=== PATIENT | female | born 1995 | race Caucasian/White ===

== ENCOUNTER 2017-04-18 01:03 | Inpatient (IN) | payer MEDICAID ==
[2017-04-18 01:23] VITALS: BMI 27.4
[2017-04-18] MEDS: Lactated Ringer's 1,000 ML IV SCH (02:20)
--- NOTE | 2017-04-18 02:22 | OBADHP ---
Datetime: 04/18/2017 01:56 Admit Comment, IP Provider: 21 y/o female with IUP at 38.2wks gestation (KATE 04/30) presents with lo ss of fluid at 12:30am. Denies ctx, vb. +fm. Denies headache, blurry vision, epigastric/RUQ pain, LE swelling. PT states she is desiring . PNC: [facility], no pnc records, unkown, GBS status unknown. Last visit 04/08, missed last appt. OBHx: Prior Csection 2009, breech, full term, pt reports having high blood pressures denies having preeclampsia PMHX: denies PsurHx: denies NKDA Meds: PNV Denies smoking, alcohol, drug use Vitals: 151/89, HR 116, O2 sat 99 General: Comfortable, NAD, AOx3 Cardiac: RRR, no murmurs Pul: CTABL Abdomen: Gravid, NT Speculum: +pooling, clear, nitrazine + Bimanual: Cervix closed, 65%, -3 FHR: 160, reactive, no decels Bedside Abd U/S: Cephalic presentation Assessment: IUP at 38.2 wks with SROM, not in active labor, elevated BP Plan: Admit to L_D. Continuous monitoring and monitor maternal vital signs. Will retrieve PN C records from [facility] and operative records from [place]. CBC, CMP, Uric Acid, LDH Discussed case with OB Attending, Dr. Ortiz Stover, PGY1 OB Hopsitalist Addendum: Pt seen and examined by me. Agree w/ above. 21 yo w/ h/o previ ous c/s at 38+2 weeks w/ SROM clear fluid at 00:30, desires . Pt denies ctxns, VB, reports FM. Pt denies HAs, vision changes, N/V, abominal pain. BP 151/89. On exam, pt appears comfortable lying in bed. Spec: positive pool clear fluid, positive nitrazine. VE: closed/ 65/ -3 at 01:55am. DTRs 3+. Pt admitted to L_D. GBS unknown. Pt consented for . Will obtain records from [facility] in am . (ES) Vital Signs Provider: Reviewed Vital Signs Provider Details: elevated bp IP Chief Complaint: Suspected ruptured membranes EGA AdmitDate IP: 38.2 IP Adm Impression: Term, intrauterine IP Admit Plan: Admit to unit
[2017-04-18 02:35] LABS: BASO % 0.3 % (0.0-2.0); EOS # 0.1 K/uL (0.0-0.7); EOS % 0.6 % (0.0-4.0); HEMOGLOBIN 10.8 g/dL (12.0-16.0); LYMPH # 2.1 K/uL (1.0-4.3); LYMPH % 22.6 % (20.0-40.0); MEAN CELL VOLUME 89.5 fl (81.0-99.0); MEAN CORPUSCULAR HEMOGLOBIN 29.5 pg (27.0-31.0); MEAN PLATELET VOLUME 8.8 fl (7.2-11.7); MONO # 0.6 K/uL (0.0-0.8); MONO % 6.6 % (0.0-10.0); NEUT # 6.5 K/uL (1.8-7.0); NEUT % 69.9 % (50.0-75.0); RBC 3.65 Mil/uL (3.80-5.20); RED CELL DISTRIBUTION WIDTH 13.3 % (11.5-14.5); WHITE BLOOD COUNT 9.3 K/uL (4.8-10.8)
[2017-04-18 02:57] LABS: ALBUMIN 3.7 g/dL (3.5-5.0); ALT/SGPT 21 U/L (9-52); AST/SGOT 28 U/L (14-36); BLOOD UREA NITROGEN 11 mg/dl (7-17); GFR AFRICAN-AMERICAN > 60; GFR NON-AFRICAN AMERICAN > 60
[2017-04-18 03:20] LABS: URIC ACID 4.1 mg/Dl (2.2-7.5)
[2017-04-18] MEDS ORDERED: Nalbuphine 20 mg/ml Inj (1 ml) IVP ONE (04:31)
--- NOTE | 2017-04-18 04:38 | OBHP ---
Datetime: 04/18/2017 01:56 Amniotic Fluid Color, Provider: Clear EGA AdmitDate IP: 38.2 NICHD Accel Fetus A IP Provider: [id number] Datetime: 04/18/2017 01:29 IP Adm Impression: Term, intrauterine IP Admit Plan: Admit to unit Admit Comment, IP Provider: 21 y/o female with IUP at 38.2wks gestation (KATE 04/30) presents with lo ss of fluid at 12:30am. Denies ctx, vb. +fm. Denies headache, blurry vision, epigastric/RUQ pain, LE swelling. PT states she is desiring . PNC: [facility], no pnc records, unkown, GBS status unknown. Last visit 04/08, missed last appt. OBHx: Prior Csection 2009, breech, full term, pt reports having high blood pressures denies having preeclampsia PMHX: denies PsurHx: denies NKDA Meds: PNV Denies smoking, alcohol, drug use Vitals: 151/89, HR 116, O2 sat 99 General: Comfortable, NAD, AOx3 Cardiac: RRR, no murmurs Pul: CTABL Abdomen: Gravid, NT Speculum: +pooling, clear, nitrazine + Bimanual: Cervix closed, 65%, -3 FHR: 160, reactive, no decels Bedside Abd U/S: Cephalic presentation Assessment: IUP at 38.2 wks with SROM, not in active labor, elevated BP Plan: Admit to L_D. Continuous monitoring and monitor maternal vital signs. Will retrieve PN C records from [facility] [place] and operative records from [place]. CBC, CMP, Uric Acid, LDH Discussed case with OB Attending, Dr. Ortiz Stover, PGY1 Pelvic Type - PN: Adequate Extremities - PN: Normal Abdomen - PN: Normal Back - PN: Normal Breast - PN: Not Done Lungs - PN: Normal Heart - PN: Normal Thyroid - PN: Normal Neurologic - PN: Normal HEENT - PN: Normal General - PN: Normal FHR - Baseline A Provider: 150 Membranes, Provider: Ruptured Contraction Comments Provider: q2-5 Nitrazine Provider: Positive Vital Signs Provider: Reviewed Vital Signs Provider Details: elevated BP IP Chief Complaint: Suspected ruptured membranes NICHD Variability Prov Fetus A: Moderate 6-25bpm FHR Category Provider Fetus A: Category I NICHD Decel Fetus A IP Provider: None Dilatation, Provider: 0 Effacement, Provider: 65 Station, Provider: -3 Genitourinary Exam: Normal DTRs - PN: Abnormal
[2017-04-18] MEDS ORDERED: Bupivacaine HCl 0.25% PF (10 ml) Inj ONE (08:30)
[2017-04-18] MEDS ORDERED: ceFAZolin IV 2 gm in Dextrose 2 GM/50 ML BAG IVPB ONE (09:03)
[2017-04-18] MEDS ORDERED: EPINEPHrine 1 mg/ml (1:1000) Inj ONE (09:13)
[2017-04-18] MEDS ORDERED: Lidocaine 2% PF (10 ml) Amp ONE (09:14)
[2017-04-18] MEDS ORDERED: Oxytocin 30 UNITS in Sodium Chloride 0.9% 500 ML IV ONE (09:19)
--- NOTE | 2017-04-18 09:20 | OBPN ---
Datetime: 04/18/2017 09:05 IP Informed Consent Obtain: Section Delivery Contraction Comments Provider: q 1-4 mins FHR - Baseline A Provider: 150 IP Progress Note Comment: Patient evaluated, advised patient for repeat . Advised risks inc luding risk of bleeding, infection, damage to surrounding organs. Ancef to be given pre-operatively. Will proceed to when available Vital Signs Provider: Reviewed; Within Normal Limits NICHD Variability Prov Fetus A: Moderate 6-25bpm NICHD Decel Fetus A IP Provider: Early Datetime: 04/18/2017 01:56 Amniotic Fluid Color, Provider: Clear NICHD Accel Fetus A IP Provider: [id number] Datetime: 04/18/2017 01:29 Nitrazine Provider: Positive Membranes, Provider: Ruptured Vital Signs Provider Details: elevated BP FHR Category Provider Fetus A: Category I Dilatation, Provider: 0 Effacement, Provider: 65 Station, Provider: -3
[2017-04-18] MEDS ORDERED: Morphine 1 mg/ml preservative-free Inj(Duramorph) ONE (09:32)
[2017-04-18] MEDS ORDERED: DiphenhydrAMINE 50 mg/ml Inj IVP PRN (10:10)
--- NOTE | 2017-04-18 10:44 | OBDS ---
DELIVERY PERSONNEL Delivery Doctor: Nilsa Hunt MD/Dr Alcantar Scrub Nurse: Vianca Wall OBT [employer] Driver: Andre Hernandez [id number] Anesthesiologist: Billie Funez MD MATERNAL INFORMATION Medications in Delivery: Pitocin Placenta Cultured: No Maternal Complications: None Provider Comments: Surgeon: Dr. Hunt [employer] Flatbed Driver; Dr. Alcantar Pre-operative Dx: Term, previous x 1, ruptured Surgery: Repeat Post-op: Same Findings: Live male infant, 6lbs 15 oz, 9/9, clear fluid, adhesions between peritoneum and muscle, unable to visualize tubes and ovaries [id number] Total input: 1500mL UO: 400mL Anesthesia: Epidural by Dr. Funez Complications: None Condition: stable LABOR SUMMARY EDC: 04/30/2017 00:00 No. Babies in Womb: 1 MEMBRANES Membranes Rupture Method: Spontaneous Amniotic Fluid Color: Clear STAGES OF LABOR Stage 3 hrs: 0 Stage 3 min: 1 BABY A INFORMATION Delivery Date/Time: 04/18/2017 10:02 Method of Delivery: Born in Route : No : N/A Forceps: N/A Vacuum Extraction: N/A Shoulder Dystocia : No SHOULDER DYSTOCIA BABY A Infant Delivery Date/Time: 04/18/2017 10:02 PRESENTATION/POSITION BABY A Presentation: Cephalic Cephalic Presentation: Vertex Breech Presentation: N/A PLACENTA INFORMATION BABY A Placenta Delivery Time : 04/18/2017 10:03 Placenta Method of Delivery: Expressed Placenta Status: Delivered SCORES BABY A Heart Rate 1 min: >100 bpm Resp Effort 1 min: Good Cry Reflex Irritability 1 min: Cough or Sneeze or Pulls Away Muscle Tone 1 min: Active Motion Color 1 min: Body [place], Extremities Blue Resuscitation Effort 1 min: Tactile Stimulation SCORE 1 MIN: 9 Heart Rate 5 min: >100 bpm Resp Effort 5 min: Good Cry Reflex Irritability 5 min: Cough or Sneeze or Pulls Away Muscle Tone 5 min: Active Motion Color 5 min: Body [place], Extremities Blue Resuscitation Effort 5 min: N/A SCORE 5 MIN: 9 INFORMATION BABY A Gestational Age at Delivery: 38.2 Gestational Status: Term Outcome : Liveborn Condition : Stable Infant Sex: Male IDENTIFICATION/MEDS BABY A ID Band Number: [id number] ID Band Location: Left Leg; Left Arm Vitamin K Given : Not Given Erythromycin Given: Not Given WEIGHT/LENGTH BABY A Birthweight (gms): 3115 Weight (lb): 6 Weight (oz): 14 CORD INFORMATION BABY A No. Cord Vessels: 3 Nuchal Cord : N/A Nuchal Cord Other: n/a True Knot: n/a Infant Cord pH Baby Arterial: n /a Cord pH Baby Venous: n/a Cord Blood Taken: Yes Banking/Donate Info: n/a Suction: Mouth; Nose ASSESSMENT BABY A Complications: None Physical Findings at Delivery: Within Normal Limits Respirations: Appears Normal Supervisor Cartography/ALS Called : No Care By: Dr Kaplan/Jada
--- NOTE | 2017-04-18 12:28 | OP ---
PROCEDURE DATE: 04/18/2017 PREOPERATIVE DIAGNOSES: Term , previous section x1 and ruptured. POSTOPERATIVE DIAGNOSES: Term , previous section x1 and ruptured. SURGERY: Repeat . SURGEON: Dr. Hunt. CROCHETER: Dr. Alcantar. FINDINGS: Live male , 6 pounds 15 ounces, 9 and 9, vertex, clear fluid, adhesions between peritoneum and muscle, unable to visualize tubes and ovaries. ESTIMATED BLOOD LOSS: 800 mL. TOTAL FLUID INPUT: 1500 mL. URINE OUTPUT: 400 mL. TYPE OF ANESTHESIA: Epidural. ANESTHESIA ADMINISTERED BY: Dr. Funez. COMPLICATIONS: None. CONDITION: Stable. PATHOLOGY SPECIMEN: Cord blood. INDICATION: This is a 21-year-old G2, P1 at 38 weeks and 2 days, who presents to Labor and Delivery, ruptured and previous . The patient was counseled for repeat , explained risks and benefits of repeat surgery including risk of bleeding, infection, damage to surrounding organs such as bowel, bladder, ureter, and uterus. The patient verbalized understanding and signed informed consent. Ancef was given preoperatively, anesthesia placed bilaterally. DESCRIPTION OF PROCEDURE: The patient was taken to the OR and Ancef was given preoperatively, SCDs were placed bilaterally. The patient was prepped and draped in the lower supine position with a leftward tilt. A Pfannenstiel skin incision was made through the previous incision with scalpel and carried through to the underlying layer of fascia with the Bovie. The fascia was incised in the midline, and incision was extended laterally with the Bovie. Linda clamps was used to tent up the inferior aspect of this incision, which was dissected off the underlying rectus abdominis muscles with the Bovie. In a similar fashion, we tented up the superior aspect of this incision, which we dissected off of the underlying rectus abdominis muscles with the Bovie. The muscles were bluntly at the midline. We dissected down to the underlying layer of fascia layer of peritoneum carefully. Good visualization of all underlying organs superiorly and inferiorly. The bladder blade was inserted. Lower uterine segment was incised in a transverse fashion. Uterine cavity was entered. The uterine incision was extended manually. The infant was delivered in cephalic presentation atraumatically followed by shoulders and rest of the atraumatically. Cord was clamped and cut. The infant was handed off to the awaiting pediatric team. Placenta was excised manually. The uterus was unable to be exteriorized due to the dense adhesions between the peritoneum and the muscle. We removed all the debris from the uterus. Uterine incisions were repaired with an 0-Vicryl stitch in a locked fashion. Hysterotomy site appeared to be hemostatic. The peritoneum was closed with 2-0 Monocryl and the muscle was re-approximated with the same stitch. The fascia was closed with an 0 Vicryl stitch and the subcutaneous fat was re-approximated with plain gut suture. Sponge, needle and instruments were accounted for x4. Skin was closed with a 4-[address] Alcantar assisted in all aspects of delivery including retractions of the infant, suturing, cutting of suture. The patient was taken to the recovery room in stable condition. Jane Hunt MD
[2017-04-18] MEDS ORDERED: Oxycodone/Acetaminophen 5/325 mg Tab PO PRN ×2 (12:49)
[2017-04-19] MEDS ORDERED: Tetanus/Diphtheria Toxoids 0.5 ml Syringe IM ONE (06:17)
[2017-04-19 06:53] LABS: BASO % 0.2 % (0.0-2.0); EOS % 0.1 % (0.0-4.0); HEMOGLOBIN 8.2 g/dL (12.0-16.0); LYMPH # 1.9 K/uL (1.0-4.3); LYMPH % 18.5 % (20.0-40.0); MEAN CELL VOLUME 89.8 fl (81.0-99.0); MEAN CORPUSCULAR HEMOGLOBIN 30.1 pg (27.0-31.0); MEAN CORPUSCULAR HGB CONC 33.6 g/dL (33.0-37.0); MEAN PLATELET VOLUME 8.4 fl (7.2-11.7); MONO # 0.8 K/uL (0.0-0.8); MONO % 7.5 % (0.0-10.0); NEUT # 7.6 K/uL (1.8-7.0); NEUT % 73.7 % (50.0-75.0); NRBC % 0.1 % (0.0-0.0); RBC 2.73 Mil/uL (3.80-5.20); RED CELL DISTRIBUTION WIDTH 13.1 % (11.5-14.5); WHITE BLOOD COUNT 10.4 K/uL (4.8-10.8)
--- NOTE | 2017-04-19 10:27 | OBPPN ---
Datetime: 04/19/2017 06:17 PP Pain Prov: Within normal limits PP Nausea Prov: Denies PP Flatus Prov: Yes PP BM Prov: No PP Breasts Prov: Not Done PP Heart Prov: Normal PP Lungs Prov: Normal PP Abdomen/Uterus Prov: Normal PP Lochia Prov: Normal PP Vulva/Perineum Prov: Not Done PP CVA Tenderness Prov: Not Done PP Extremities Prov: Normal PP C/S Incision Prov: Not Applicable PP Progress Prov: Normal PP Impression Prov: Normal progression PP Plan Prov: Continue present management PP Progress Note Prov: POD 1 S: 21 y/o s/p repeat c section on 04/18/17 seen an evaluated post op day 1. No overnight even ts. Pt reports mild abdominal pain, but well controlled with pain meds. Ambulating without dizziness/ lightheadedness/palpatations. without difficulty. Lochia is similar to menses volume. No BM, +gas per rectum. Denies fever/chills, diarrhea, nausea/vomiting, chest pain, dyspnea, and dizz iness. O: VS: stable GEN: NAD Cardio: S1S2, no murmurs Lungs: clear breath sounds b/l, no wheezing Abdomen: BS+, appropriate tenderness to palpation. Dressing in tact, dry. Uterus is firm and at th e level of the umbilicus. EXT: No edema, calves nontender NEURO/PSYCH: AAOx3, no grossly focal deficits, preserved affect and mood. Assessment/Plan: : 21 y/o s/p repeat c section on 04/18/17 seen an evaluated post op day 1. P t remains afebrile, tolerating pain with medication, doing well on POD#1 .F/U Post-op H/H. Pt has no anemia symptoms. OOB with caution. García removed this morning. Dressing to be removed at 10am this mo rning. Anticipating discharge 04/22. TDAP ordered. Pt agrees for vaccine SCDs for DVT prophylaxis, encouraged ambulating Percocet 5/325mg, and Motrin 600mg po q6 for pain Colace 100mg PO BID Encourage and ambulating Discussed with OB Attending Nilda Stover, PGY1 OB Hospitalist on-call : on Rounds this morning, I saw and examined this patient. Agree with PGY1 note. H/H 10/21 anemia asumptomatic currently (continue to observe postop) MAHNDO IP PP Procedures: None Vital Signs Provider PP: Reviewed; Within Normal Limits
--- NOTE | 2017-04-20 08:46 | OBPPN ---
Datetime: 04/20/2017 05:53 PP Pain Prov: Within normal limits PP Nausea Prov: Denies PP Flatus Prov: Yes PP BM Prov: No PP Breasts Prov: Not Done PP Heart Prov: Normal PP Lungs Prov: Normal PP Abdomen/Uterus Prov: Normal PP Lochia Prov: Normal PP Vulva/Perineum Prov: Not Done PP CVA Tenderness Prov: Not Done PP Extremities Prov: Normal PP C/S Incision Prov: Normal PP Progress Prov: Normal PP Impression Prov: Normal progression PP Plan Prov: Continue present management PP Progress Note Prov: POD 3 S: 21 y/o s/p repeat c section on 04/18/17 seen and evaluated post op day 3. No overnight josé nts. Pt reports mild abdominal pain, but well controlled with pain meds. Ambulating without dizziness / lightheadedness/palpitations. without difficulty. Lochia is similar to menses volume. No BM, +gas per rectum. Denies fever/chills, diarrhea, nausea/vomiting, chest pain, dyspnea, and diz ziness. Declines circumcision for baby boy. O: VS: stable GEN: NAD Cardio: S1S2, no murmurs Lungs: clear breath sounds b/l, no wheezing Abdomen: BS+, appropriate tenderness to palpation. Incision is closed with clean margins, no eryth martita, discharge, or swelling. Appropriate tenderness. Uterus is firm and at the level of the umbilicus . EXT: No edema, calves nontender NEURO/PSYCH: AAOx3, no grossly focal deficits, preserved affect and mood. H/H post op: 8.2/24.5 Assessment/Plan: : 21 y/o s/p repeat c section on 04/18/ doing well on post op day 3. Pt chapis ins afebrile, tolerating pain with medication. Post cbc significant for anemia, Hg 8, but pt d enies any symptoms. Will continue to monitor and give RX for iron supplementation on discharge. OOB w ith caution. Dressing removed yesterday and incision noted to be wnl, no signs of infection. Will ad willie diet as tolerating this morning. Anticipating discharge 04/21. TDAP ordered. Pt agrees for vaccine SCDs for DVT prophylaxis, encouraged ambulating Percocet 5/325mg, and Motrin 600mg po q6 for pain Colace 100mg PO BID Encourage and ambulating Discussed with OB Attending Nilda Stover, PGY1 The patient was seen with the resident I agree with the note IP PP Procedures: None
[2017-04-20] MEDS ORDERED: Tdap Vaccine 0.5 ml Vial (10-64 yrs) IM ONE (09:00)
[2017-04-21] MEDS: Lactated Ringer's 1,000 ML IV SCH (10:01)
--- NOTE | 2017-04-22 10:31 | OBPPN ---
Datetime: 04/22/2017 06:54 PP Pain Prov: Within normal limits PP Nausea Prov: Denies PP Flatus Prov: Yes PP BM Prov: Yes PP Impression Prov: Normal progression PP Plan Prov: Continue present management; Discharge PP Progress Note Prov: POD 4 S: 21 y/o s/p repeat c section on 04/18/17 seen and evaluated post op day 4. No overnight josé nts. Pt reports mild abdominal pain, but well controlled with pain meds. Ambulating without dizziness / lightheadedness/palpitations. without difficulty. Lochia is similar to menses volume. No BM, +gas per rectum. Denies fever/chills, diarrhea, nausea/vomiting, chest pain, dyspnea, and diz ziness. Tolerating regular diet. Baby boy is receiving phototherapy for hyperbilirubinemia. O: VS: stable GEN: NAD Cardio: S1S2, no murmurs Lungs: clear breath sounds b/l, no wheezing Abdomen: BS+, appropriate tenderness to palpation. Incision is closed with clean margins, no eryth martita, discharge, or swelling. Appropriate tenderness. Uterus is firm and at the level of the umbilicus . EXT: No edema, calves nontender NEURO/PSYCH: AAOx3, no grossly focal deficits, preserved affect and mood. H/H post op: 8.2/24.5 Assessment/Plan: 21 y/o s/p repeat c section on 04/18/17 doing well on post op day 4. Pt chapis ins afebrile, tolerating pain with medication. Post cbc significant for anemia, Hg 8, but pt d enies any symptoms. Will continue to monitor and give RX for iron supplementation on discharge. Recei jacek TDAP vaccine yesterday. OOB with caution. Contraception discussed. Anticipating discharge today. SCDs for DVT prophylaxis, encouraged ambulating Percocet 5/325mg, and Motrin 600mg po q6 for pain Colace 100mg PO BID Encourage and ambulating Discussed with OB Attending Nilda Stover, PGY1 Addendum by Dr. Hunt: Patient evaluated independently and I agree with the above. IP PP Procedures: None Vital Signs Provider PP: Reviewed; Within Normal Limits Datetime: 04/21/2017 06:07 PP Breasts Prov: Not Done PP Heart Prov: Normal PP Lungs Prov: Normal PP Abdomen/Uterus Prov: Normal PP Lochia Prov: Normal PP Vulva/Perineum Prov: Not Done PP CVA Tenderness Prov: Not Done PP Extremities Prov: Normal PP C/S Incision Prov: Not Applicable PP Progress Prov: Normal
[2017-04-22 15:37] VITALS: BP 137/87; PULSE 95; RESP 20; TEMP 97.5; O2SAT 99
== END 2017-04-22 10:55 | disposition home or self-care (01) | DRG 370 ==
LOC: H.EROB2 01:03 → H.L&D 01:52 → H.OB/GYN 12:30
PROVIDERS: ADMIT Obstetrics & Gynecology; ATTEND Obstetrics & Gynecology
PROC: 10D00Z1 Extraction of Products of Conception, Low, Open Approach (ICD-10-PCS; principal; 2017-04-18)
PROC: 4A1HXCZ Monitoring of Products of Conception, Cardiac Rate, External Approach (ICD-10-PCS; 2017-04-18)
PROC: 3E0234Z Introduction of Serum, Toxoid and Vaccine into Muscle, Percutaneous Approach (ICD-10-PCS; 2017-04-20)
DX: O34.219 Maternal care for unspecified type scar from previous cesarean delivery (principal); O99.02 Anemia complicating childbirth; N85.8 Other specified noninflammatory disorders of uterus; Z37.0 Single live birth; Z3A.38 38 weeks gestation of pregnancy; Z23 Encounter for immunization